=== PATIENT | male | born 1985 | race Caucasian/White ===

== ENCOUNTER 2020-09-21 19:52 | Emergency (ER) | payer OTHER, MEDICAID, SELFPAY ==
[2020-09-21 19:55] VITALS: BP 124/71; PULSE 74; RESP 14; TEMP 36.6; O2SAT 99; BMI 33.3
--- NOTE | 2020-09-21 19:57 | DI.RAD.S_ITS ---
PROCEDURE: XR ANKLE LT MIN 3V INDICATIONS: ankle injury TECHNIQUE: 3 views of the ankle were acquired. COMPARISON: None. FINDINGS: Bones: No fractures or dislocations. Ankle mortise is normally aligned. No suspicious bony lesions. Mild periarticular osteophyte formation at the tibiotalar joint. Soft tissues: No tibiotalar joint effusion. Achilles tendon appears normal. IMPRESSION: Osteoarthritis. No acute fracture. No osseous lesion. If symptoms and/or clinical suspicion for pathology persist, further assessment with repeat, or advanced imaging (e.g., CT, MRI, or bone scan) may be helpful for further assessment. Dictated by: Philippe Palacios M.D. on 09/21/2020 at 20:13 Approved by: Philippe Palacios M.D. on 09/21/2020 at 20:13
== END 2020-09-21 22:28 | disposition home or self-care (01) ==
PROVIDERS: Emergency Provider Emergency Medicine; PCP Family Medicine
DX: S99.912A Unspecified injury of left ankle, initial encounter (principal); X50.1XXA Overexertion from prolonged static or awkward postures, initial encounter
CPT/HCPCS: 73610; 99281